=== PATIENT | female | born 1995 | race Caucasian/White ===

== ENCOUNTER 2018-10-27 23:56 | Emergency (ER) | payer MEDICAID ==
[~2018-10-27] VITALS: Ht 167.6 cm; Wt 93.2 kg
[~2018-10-27 23:56] MED LIST: DOCU-144 PO; FERR325C PO; PREN-99 PO
[2018-10-28 00:03] VITALS: Ht 167.6 cm; Wt 93.2 kg
[2018-10-28] MEDS ORDERED: PHEN-538 PO (03:13)
[2018-10-28] MEDS ORDERED: CEPH-443 PO (03:13)
--- NOTE | 2018-10-28 03:16 | ERD ---
ER Documentation Chief Complaint Chief Complaint painful/burning urination x 2 days HPI 22-year-old female presents with dysuria for last 2 days. She has an additional complaint of a bump on the vaginal area. patient denies fevers, vomiting, shortness of chest pain. She denies any abdominal pain. She denies . ROS All systems reviewed and are negative except as per history of present illness. Medications Home Meds Active Scripts Phenazopyridine Hcl* (Pyridium*) 200 Mg Tab, 200 MG PO TID PRN for URINARY PAIN, #6 TAB Prov:ZACK FLORES MD 10/28/18 Cephalexin* (Keflex*) 500 Mg Capsule, 500 MG PO QID for 5 Days, CAP Prov:ZACK FLORES MD 10/28/18 Docusate Sodium* (Colace*) 100 Mg Capsule, 100 MG PO BID for 30 Days, #60 CAP 2 Refills Prov:MAGGY DE LA TORRE MD 02/03/16 Ferrous Sulfate (Iron) 325 Mg Capsule.er, 325 MG PO BID, #60 CAP 2 Refills Prov:MAGGY DE LA TORRE MD 02/03/16 Reported Medications Vit #76/Iron,Carb/FA (Pnv 29-1 Tablet) 1 Each Tablet, 1 EACH PO DAILY, TAB 02/01/16 Allergies Allergies: Coded Allergies: latex (Unverified Allergy, Mild, 02/01/16) PMhx/Soc Medical and Surgical Hx: pt denies Medical Hx, pt denies Surgical Hx History of Surgery: No Anesthesia Reaction: No Hx Neurological Disorder: No Hx Respiratory Disorders: No Hx Cardiac Disorders: No Hx Psychiatric Problems: No Hx Miscellaneous Medical Probl: No Hx Alcohol Use: No Hx Substance Use: No Hx Tobacco Use: No FmHx Family History: No diabetes, No coronary disease, No other Physical Exam Vitals Vital Signs Date Temp Pulse Resp B/P (MAP) Pulse Ox O2 O2 Flow FiO2 Time Delivery Rate 10/28/18 97.7 79 18 126/58 99 00:03 (80) Physical Exam Const: No acute distress Head: Atraumatic Eyes: Normal Conjunctiva ENT: Normal External Ears, Nose and Mouth. Neck: Full range of motion. No meningismus. Resp: Clear to auscultation bilaterally Cardio: Regular rate and rhythm, no murmurs Abd: Soft, non tender, non distended. Normal bowel sounds. Minimal suprapubic pain. Pelvic exam with credit and loan collections supervisor shows very tiny bump just lateral to the clitoral ying or lab via minora. No induration, streaking, fluctuance or discharge. Skin: No petechiae or rashes Back: No midline or flank tenderness Ext: No cyanosis, or edema Neur: Awake and alert Psych: Normal Mood and Affect Results 24 hrs Laboratory Tests Test 10/28/18 01:48 10/28/18 01:50 Bedside Urine pH (LAB) 6.0 Bedside Urine Protein (LAB) Trace Bedside Urine Glucose (UA) Negative Bedside Urine Ketones (LAB) Trace Bedside Urine Blood 1+ Bedside Urine Nitrite (LAB) Negative Bedside Urine Leukocyte Esterase (L 2+ POC Beta HCG, Qualitative NEGATIVE Current Medications Medications Dose Sig/Faye Start Time Status Last (Trade) Ordered Route PRN Stop Time Admin Dose Reason Admin Cephalexin 500 mg ONCE ONCE 10/28/18 (Keflex) PO 03:30 10/28/18 03:31 200 mg ONCE ONCE 10/28/18 Phenazopyridi PO 03:30 10/28/18 ne HCl 03:31 (Pyridium) Procedures/MDM Urine shows signs of infection. hCG is negative. Patient has additional signs of likely swollen gland of the vaginal mucosa. There is no signs to suggest abscess, cellulitis, herpes, additional concerning signs or symptoms. Will treat with warm soaks, Keflex, Pyridium, primary care follow-up and return precautions. The patient was stable with no new complaints during the ER course. Clinically, there is no current evidence to suggest meningitis, sepsis, acute abdomen, pneumonia, stroke, acute coronary syndrome, pulmonary embolism, aortic dissection or any other emergent condition appearing to require further evaluation or hospitalization. Patient counseled regarding my diagnostic impression and care plan. Prior to discharge all questions answered. Pt agrees with treatment plan and understands strict return precautions. Pt is instructed to follow up with primary care provider within 24-48 hours. Precautionary in structions provided including instructions to return to the ER if not improving or for any worsening or changing symptoms or concerns. Disclaimer: Inadvertent spelling and grammatical errors are likely due to EHR/dictation software use and do not reflect on the overall quality of patient care. Also, please note that the electronic time recorded on this note does not necessarily reflect the actual time of the patient encounter. Departure Diagnosis: Primary Impression: UTI (urinary tract infection) Urinary tract infection type: acute cystitis Hematuria presence: without hematuria Qualified Codes: N30.00 - Acute cystitis without hematuria Additional Impression: Genitourinary symptoms Condition: Stable Patient Instructions: Understanding Urinary Tract Infections (UTIs), Folliculitis Additional Instructions: Urine shows infection. Recommend warm soaks at home. Recheck for worsening swelling, pain, fevers, new worsening symptoms. ZACK FLORES MD Oct 28, 2018 03:16
[2018-10-28] MEDS ORDERED: PHENAZOPYRIDINE 100 MG TAB PO ONE (03:30)
[2018-10-28] MEDS ORDERED: CEPHALEXIN 500 MG CAP PO ONE (03:30)
[2018-10-28 03:41] VITALS: BP 107/62; PULSE 78; RESP 18
== END 2018-10-28 03:45 | disposition home or self-care (01) ==
LOC: FTE 23:56
DX: N30.00 Acute cystitis without hematuria (principal); R39.89 Other symptoms and signs involving the genitourinary system
CPT/HCPCS: 81003; 81025; Z7502; Z7610; 99284